=== PATIENT | female | born 1970 | race American Indian/Alaskan Native ===

== ENCOUNTER 2019-02-17 16:50 | Emergency (ER) | payer OTHER ==
--- NOTE | 2019-02-17 17:17 | Event Note ---
ED Screening Note Date of service: 02/17/19 Time: 17:14 ED Screening Note: This is a 48 y.o. F. that presents to the ER with headache and vaginal bleeding. Patient states she was at work when she felt pressure and noticed blood running down her legs. Reports passing a large clot. Denies pain. LMP 12/03/2018 This initial assessment/diagnostic orders/clinical plan/treatment(s) is/are subject to change based on patients health status, clinical progression and re- assessment by fellow clinical providers in the ED. Further treatment and workup at subsequent clinical providers discretion. Patient/guardian urged not to elope from the ED as their condition may be serious if not clinically assessed and managed. Initial orders include: Labs
[2019-02-17 17:46] LABS: Hemoglobin 12.6 gm/dl (10.1-14.3); Mean Corpuscular HGB Conc 31 % (30-34); Mean Corpuscular Volume 78 fl (79-97); Platelet Count 269 K/mm3 (140-440); Red Blood Count 5.13 M/mm3 (3.65-5.03); Red Cell Distribution Width 13.3 % (13.2-15.2)
[2019-02-17 18:06] LABS: Bacteria,Urine 1+ /HPF (Negative); Bilirubin,Urine NEG (Negative); Blood,Urine LG (Negative); Color,Urine Amber (Yellow); Mucus,Urine 3+ /HPF
[2019-02-17 19:05] LABS: Hypochromasia 1+; Total Cells Counted 100
[2019-02-17] MEDS ORDERED: TORADOL IV ONE (19:42)
[2019-02-17] MEDS ORDERED: ZOFRAN IV ONE (19:42)
[2019-02-17] MEDS ORDERED: LEVAQUIN PO ONE (19:42)
[2019-02-17] MEDS ORDERED: NACL 0.9% 1000 ML 1,000 ML IV ONE (19:45)
--- NOTE | 2019-02-17 21:50 | Emergency Department Report ---
ED Female HPI - General Chief complaint: Vaginal Bleeding Stated complaint: HEAD PAIN Time Seen by Provider: 02/17/19 17:14 Source: patient Mode of arrival: Ambulatory Limitations: No Limitations - History of Present Illness Initial comments: Patient is [id number] 48-year-old AA female with no past medical history who presents to the ED with complaint of acute onset persistent dysuria, urinary frequency and urgency, low back pain, pelvic pain and vaginal bleeding for the last 12 hours. Patient states that she had been having urinary frequency and dysuria with low back pain for the last 3 days but that about 12 hours ago while at work she developed heavy vaginal bleeding with blood clots. Patient states that about 4 days ago high urine tested positive for home. Patient denies nausea, vomiting, diarrhea, dizziness, chest pain, shortness of breath, dyspareunia, fever, chills, cough or sore throat and nasal and sinus congestion. MD Complaint: vaginal bleeding, dysuria, pelvic pain, other (headache) -: Sudden, hour(s) (12) Location: suprapubic Radiation: non-radiating Severity: moderate Severity scale (0 -10): 4 Quality: cramping, dull Consistency: intermittent Improves with: none Worsens with: none Are you Now?: Yes (suspected) Last Menstrual Period: 11/08/18 EDC: 08/15/19 Associated Symptoms: denies other symptoms, vaginal bleeding, abdominal pain, dysuria, hematuria. denies: vaginal discharge, nausea/vomiting, fever/chills, headaches, loss of appetite, shortness of breath, syncope, weakness - Related Data Sexually active: Yes : 21 Para: 5 A: 16 Previous Rx's Medication Instructions Recorded Last Taken Type Ibuprofen [Motrin] 600 mg PO Q8H PRN #20 tablet 02/17/19 Unknown Rx Sulfamethoxazole/Trimethoprim 1 each PO Q12H #20 tablet 02/17/19 Unknown Rx [Bactrim DS TAB] Allergies Allergy/AdvReac Type Severity Reaction Status Date / Time ampicillin Allergy Swelling Verified 02/17/19 16:52 Penicillins Allergy Swelling Verified 02/17/19 16:52 ED Review of Systems ROS: Stated complaint: HEAD PAIN Other details as noted in HPI Constitutional: denies: chills, fever Eyes: denies: eye pain, eye discharge, vision change ENT: denies: ear pain, throat pain Respiratory: denies: cough, shortness of breath, wheezing Cardiovascular: denies: chest pain, palpitations Endocrine: no symptoms reported Gastrointestinal: abdominal pain. denies: nausea, diarrhea Genitourinary: urgency, dysuria, frequency, hematuria, abnormal menses (vaginal bleeding). denies: discharge Musculoskeletal: back pain, arthralgia. denies: joint swelling Skin: denies: rash, lesions Neurological: denies: headache, weakness, paresthesias Psychiatric: denies: anxiety, depression Hematological/Lymphatic: denies: easy bleeding, easy bruising ED Past Medical Hx - Past Medical History Previous Medical History?: Yes Hx Asthma: Yes - Surgical History Past Surgical History?: Yes Hx Cholecystectomy: Yes Additional Surgical History: x2. ectopic x 2. lymph node biopsy - Social History Smoking Status: Never Smoker Substance Use Type: Alcohol - Medications Home Medications: Home Medications Medication Instructions Recorded Confirmed Last Taken Type Ibuprofen [Motrin] 600 mg PO Q8H PRN #20 tablet 02/17/19 Unknown Rx Sulfamethoxazole/Trimethoprim 1 each PO Q12H #20 tablet 02/17/19 Unknown Rx [Bactrim DS TAB] ED Physical Exam - General Limitations: No Limitations General appearance: alert, in no apparent distress - Head Head exam: Present: atraumatic, normocephalic, normal inspection - Eye Eye exam: Present: normal appearance, PERRL, EOMI Pupils: Present: normal accommodation - ENT ENT exam: Present: normal exam, normal orophraynx, mucous membranes moist, TM's normal bilaterally, normal external ear exam - Neck Neck exam: Present: normal inspection, full ROM - Respiratory Respiratory exam: Present: normal lung sounds bilaterally. Absent: respiratory distress, wheezes, chest wall tenderness, accessory muscle use, decreased breath sounds - Cardiovascular Cardiovascular Exam: Present: regular rate, normal rhythm, normal heart sounds. Absent: systolic murmur, diastolic murmur, rubs, gallop - GI/Abdominal GI/Abdominal exam: Present: soft, normal bowel sounds. Absent: tenderness, guarding, rebound, hyperactive bowel sounds, hypoactive bowel sounds, organomegaly - Bi-manual exam: Present: other (Patient declined, stated bleeding stopped prior to arrival in the ED) - Extremities Exam Extremities exam: Present: normal inspection, full ROM, normal capillary refill - Back Exam Back exam: Present: normal inspection, full ROM. Absent: tenderness, CVA tenderness (L), muscle spasm, paraspinal tenderness - Neurological Exam Neurological exam: Present: alert, oriented X3, CN II-XII intact, normal gait - Psychiatric Psychiatric exam: Present: normal affect, normal mood, suicidal ideation - Skin Skin exam: Present: warm, dry, intact, normal color. Absent: rash ED Course Vital Signs 02/17/19 02/17/19 17:15 20:10 Temperature 98.5 F Pulse Rate 94 H Respiratory 18 18 Rate Blood Pressure 116/77 O2 Sat by Pulse 98 Oximetry - Reevaluation(s) Reevaluation #1: 02/17/19 21:55 This is a 48-year-old Afro-[place] female with no past medical history presents with the ED with dysuria, vaginal bleeding, lower abdominal pain, low back pain for the last 12 hours. In the ED, patient is alert and oriented 3 and is not in distress, with normal vital signs. Lab test results were reviewed and are nonactionable including negative qualitative hCG serum test. Urinalysis shows significant urinary tract infection which is equivocal. Patient was treated for pain and also given initial oral antibiotics in the ED. Patient was discharged home on medications and advised to follow-up with her primary care physician or her [employer]ORTS ADMINISTRATOR physician in 7-10 days for reevaluation. Patient was advised to return to the ED immediately if symptoms get worse. ED Medical Decision Making - Lab Data Result diagrams: 02/17/19 17:27 - Medical Decision Making This is a 48-year-old Afro-[place]uran female with no past medical history presents with the ED with dysuria, vaginal bleeding, lower abdominal pain, low back pain for the last 12 hours. In the ED, patient is alert and oriented 3 and is not in distress, with normal vital signs. Lab test results were reviewed and are nonactionable including negative qualitative hCG serum test. Urinalysis shows significant urinary tract infection which is equivocal. Patient was treated for pain and also given initial oral antibiotics in the ED. Patient was discharged home on medications and advised to follow-up with her primary care physician or her SPORTS ADMINISTRATOR physician in 7-10 days for reevaluation. Patient was advised to return to the ED immediately if symptoms get worse. - Differential Diagnosis Abdominal pain; dysmenorrhea; acute UTI Critical care attestation.: If time is entered above; I have spent that time in minutes in the direct care o f this critically ill patient, excluding procedure time. ED Disposition Clinical Impression: Acute urinary tract infection, Vaginal bleeding Abdominal pain Qualifiers: Abdominal location: generalized Qualified Code(s): R10.84 - Generalized abdominal pain Disposition: TO HOME OR SELFCARE Is pt being admited?: No Does the pt Need Aspirin: No Condition: Stable Instructions: Urinary Tract Infection in Women (ED), Menstruation (ED), Abdominal Pain (ED) Additional Instructions: Take medication with food, drink plenty of fluids and follow-up with your primary care physician in 7-10 days for reevaluation. Return to the ED immediately if symptoms get worse. Prescriptions: Sulfamethoxazole/Trimethoprim [Bactrim DS TAB] 1 each PO Q12H #20 tablet Ibuprofen [Motrin] 600 mg PO Q8H PRN #20 tablet PRN Reason: Pain Referrals: KARLA PETE MD [Primary Care Provider] - 3-5 Days Forms: Work/School Release Form(ED) Time of Disposition: 21:47 Print Language: CAMBODIAN
[2019-02-17 22:06] VITALS: BP 105/54
== END 2019-02-17 22:05 | disposition home or self-care (01) ==
LOC: ED 16:50
DX: N39.0 Urinary tract infection, site not specified (principal); N93.9 Abnormal uterine and vaginal bleeding, unspecified; J45.909 Unspecified asthma, uncomplicated; Z90.49 Acquired absence of other specified parts of digestive tract; Z88.1 Allergy status to other antibiotic agents; Z88.0 Allergy status to penicillin
CPT/HCPCS: 36415; 81001; 84703; 85007; 85025; 87086; 96374; 96375; 99283; J1885; J2405; J7030